=== PATIENT | female | born 1985 | race Two or more races ===

== ENCOUNTER 2023-11-02 13:22 | Emergency (ER) | payer OTHER | END 2023-11-02 15:06 | disposition home or self-care (01) | LOC: MW.ED 13:22 | DX: S16.1XXA Strain of muscle, fascia and tendon at neck level, initial encounter (principal); Z75.8 Other problems related to medical facilities and other health care; V47.5XXA Car driver injured in collision with fixed or stationary object in traffic accident, initial encounter; Y92.410 Unspecified street and highway as the place of occurrence of the external cause | CPT/HCPCS: 71045; 71045-26; 72125; 72125-26; 99284 ==